=== PATIENT | female | born 1945 | race Caucasian/White ===

== ENCOUNTER → 2018-09-25 | Outpatient (CLI) | payer MEDICARE ==
[~2018-09-25] MED LIST: CHOL5000 PO; LIDOCAINE 1%, 20ML ONE; LIDOCAINE 1%-EPI 1:100K, 20ML ONE; MAGN500C9 PO; MULT1TAB60 PO; SODIUM BICARBONATE 4.0%, 5ML ONE
== END | disposition home or self-care (01) ==
LOC: CFH 08:27
PROVIDERS: ATTEND Surgery
DX: C50.912 Malignant neoplasm of unspecified site of left female breast (principal); I12.9 Hypertensive chronic kidney disease with stage 1 through stage 4 chronic kidney disease, or unspecified chronic kidney disease; N18.3 Chronic kidney disease, stage 3 (moderate); E78.2 Mixed hyperlipidemia; Z87.39 Personal history of other diseases of the musculoskeletal system and connective tissue; Z98.890 Other specified postprocedural states; Z90.710 Acquired absence of both cervix and uterus; Z98.51 Tubal ligation status; Z88.1 Allergy status to other antibiotic agents; Z88.8 Allergy status to other drugs, medicaments and biological substances; Z91.018 Allergy to other foods; Z72.89 Other problems related to lifestyle
CPT/HCPCS: 19285; 77065; J3490

== ENCOUNTER 2018-10-01 07:50 | Day surgery (SDC) | payer MEDICARE ==
[2018-09-28 13:18] LABS: BASOPHILS # (AUTO) 0.03 x10^3/uL (0-0.1); BASOPHILS % (AUTO) 1 % (0-1); EOSINOPHILS # (AUTO) 0.18 x10^3/uL (0-0.4); EOSINOPHILS % (AUTO) 3 % (1-7); LYMPHOCYTES # (AUTO) 1.63 x10^3/uL (1-3.4); LYMPHOCYTES % (AUTO) 27 % (22-44); MD NO; MEAN CORPUSCULAR HEMOGLOBIN 30.9 pg (27.0-34.8); MEAN CORPUSCULAR HGB CONC 34.1 g/dL (32.4-35.8); MEAN CORPUSCULAR VOLUME 90.8 fL (80-100); MEAN PLATELET VOLUME 7.7 fL (7.4-10.4); MONOCYTES # (AUTO) 0.29 x10^3/uL (0.2-0.8); MONOCYTES % (AUTO) 5 % (2-9); NEUTROPHILS # (AUTO) 3.84 x10^3/uL (1.8-6.8); NEUTROPHILS % (AUTO) 64 % (42-75); PLATELET COUNT 297 x10^3/uL (130-400); RED BLOOD COUNT 4.92 x10^6/uL (3.82-5.3); RED CELL DISTRIBUTION WIDTH 13.5 % (9.6-15.2)
[2018-09-28 13:25] LABS: INTERNATIONAL NORMALIZED RATIO 0.97 (0.93-1.1); PROTHROMBIN TIME 10.3 Seconds (9.6-11.5)
[2018-09-28 13:28] LABS: ALANINE AMINOTRANSFERASE 24 U/L (12-78); ALBUMIN 4.3 g/dL (3.4-5.0); ANION GAP 4 mmol/L (5-15); CALCIUM 9.3 mg/dL (8.5-10.1); CHLORIDE 109 mmol/L (98-107); CREATININE 0.99 mg/dL (0.55-1.02)
[2018-09-28 13:30] LABS: ALKALINE PHOSPHATASE 63 U/L (45-117); BILIRUBIN,TOTAL 0.4 mg/dL (0.2-1.0)
[~2018-10-01] VITALS: Ht 162.6 cm; Wt 78.8 kg
[~2018-10-01 07:50] MED LIST changes: +BUPIVACAINE/PF-EPI 0.5% 1:200K ONE; -LIDOCAINE 1%, 20ML ONE; -LIDOCAINE 1%-EPI 1:100K, 20ML ONE; -SODIUM BICARBONATE 4.0%, 5ML ONE
[2018-10-01 08:52] VITALS: BP 146/89
[2018-10-01] MEDS ORDERED: LACTATED RINGERS 1,000 ML IV SCH (08:56)
[2018-10-01] MEDS ORDERED: ACETAMINOPHEN 500 MG TABLET PO ONE (09:00)
[2018-10-01] MEDS ORDERED: GABAPENTIN 300 MG CAPSULE PO ONE (09:00)
[2018-10-01] MEDS ORDERED: ONDANSETRON ODT 8 MG PO ONE (09:00)
[2018-10-01] MEDS ORDERED: FENTANYL PF 250 MCG/5ML ONE (09:51)
[2018-10-01] MEDS ORDERED: MIDAZOLAM 1 MG/ML, 2ML ONE (09:51)
[2018-10-01] MEDS ORDERED: ISOSULFAN BLUE 10 MG/ML, 5ML IV ONE (10:31)
[2018-10-01] MEDS ORDERED: OXYcodone 5 MG/5 ML ORAL.SOL UDC PO PRN (12:00)
[2018-10-01] MEDS ORDERED: ONDANSETRON 2MG/ML, 2ML IV PRN (12:00)
[2018-10-01] MEDS ORDERED: MEPERIDINE/PF 25MG/0.5ML IVPush PRN (12:00)
[2018-10-01] MEDS ORDERED: METOPROLOL 1 MG/ML, 5ML IV PRN (12:00)
[2018-10-01] MEDS ORDERED: SCOPOLAMINE PATCH, 1.5MG PATCH.TD72 TD PRN (12:00)
[2018-10-01] MEDS ORDERED: HYDROmorphone 2 MG/ML, 1ML IVPush PRN (12:00)
[2018-10-01] MEDS ORDERED: MIDAZOLAM 1 MG/ML, 2ML IV PRN (12:00)
[2018-10-01] MEDS ORDERED: FENTANYL PF 100 MCG/2ML IV PRN (12:00)
[2018-10-01] MEDS ORDERED: ALBUTEROL/IPRATROPIUM 2.5MG/0.5MG, 3 ML NPPB PRN (12:00)
[2018-10-01] MEDS ORDERED: PROMETHAZINE 25 MG/ML, 1ML IV PRN (12:00)
[2018-10-01] MEDS ORDERED: hydrALAzine 20 MG/ML, 1ML IV PRN (12:00)
[2018-10-01] MEDS ORDERED: PROPOFOL 10 MG/ML, 20ML ONE (12:08)
[2018-10-01] MEDS ORDERED: CEFAZOLIN 1,000 MG ONE (12:08)
[2018-10-01] MEDS ORDERED: DEXAMETHASONE 4 MG/ML, 1ML ONE (12:08)
[2018-10-01] MEDS ORDERED: KETOROLAC 30 MG/1 ML IV PRN (13:00)
[2018-10-01] MEDS ORDERED: ROCURONIUM 10MG/ML,5ML ONE (14:43)
[2018-10-01] MEDS ORDERED: PHENYLEPHRINE 10 MG/ML ONE (14:43)
[2018-10-01] MEDS ORDERED: SUCCINYLCHOLINE 20 MG/ML, 10ML ONE (14:43)
== END 2018-10-01 15:30 | disposition home or self-care (01) ==
LOC: OUT 07:50 → EDSTATUS 10:30 → OUT 15:30
PROVIDERS: ATTEND Surgery
DX: C50.912 Malignant neoplasm of unspecified site of left female breast (principal); R59.1 Generalized enlarged lymph nodes; I12.9 Hypertensive chronic kidney disease with stage 1 through stage 4 chronic kidney disease, or unspecified chronic kidney disease; N18.3 Chronic kidney disease, stage 3 (moderate); E78.2 Mixed hyperlipidemia; Z79.01 Long term (current) use of anticoagulants; Z87.39 Personal history of other diseases of the musculoskeletal system and connective tissue; Z98.890 Other specified postprocedural states; Z98.49 Cataract extraction status, unspecified eye; Z90.710 Acquired absence of both cervix and uterus; Z98.51 Tubal ligation status; Z88.1 Allergy status to other antibiotic agents; Z88.8 Allergy status to other drugs, medicaments and biological substances; Z72.89 Other problems related to lifestyle
CPT/HCPCS: 19301; 36415; 38525; 38792; 76098; 80053; 85025; 85610; 88305; 88307; 93005; A9541; C9898; J0330; J0690; J1100; J2250; J2370; J2704; J3010; J7120; Q0162; 88341; 88342

== ENCOUNTER → 2018-10-30 | Outpatient (CLI) | payer MEDICARE ==
[~2018-10-30] MED LIST changes: -BUPIVACAINE/PF-EPI 0.5% 1:200K ONE
== END | disposition home or self-care (01) ==
LOC: ROC 07:16
PROVIDERS: ATTEND Radiology Radiation Oncology
DX: C50.412 Malignant neoplasm of upper-outer quadrant of left female breast (principal); E78.00 Pure hypercholesterolemia, unspecified; I10 Essential (primary) hypertension; M81.0 Age-related osteoporosis without current pathological fracture; E55.9 Vitamin D deficiency, unspecified; Z90.710 Acquired absence of both cervix and uterus
CPT/HCPCS: 99214; G0463

== ENCOUNTER 2019-01-11 07:58 | Outpatient (CLI) | payer MEDICARE | END 2019-01-11 23:59 | disposition home or self-care (01) | LOC: ROC 07:58 | PROVIDERS: ATTEND Radiology Radiation Oncology | DX: C50.412 Malignant neoplasm of upper-outer quadrant of left female breast (principal) | CPT/HCPCS: 99212; G0463 ==

== ENCOUNTER 2019-11-22 11:53 | Emergency (ER) | payer MEDICARE ==
[~2019-11-22] VITALS: Ht 162.6 cm; Wt 88.7 kg
--- NOTE | 2019-11-22 11:55 | NUR ---
CODE NEURO INITIATED AT 1140. KAMALJIT ARRIVED WITH PT AT 1152. NEUROLOGIST PAGED AT 1155.
[2019-11-22 12:11] LABS: BASOPHILS # (AUTO) 0.05 x10^3/uL (0-0.1); BASOPHILS % (AUTO) 1 % (0-1); EOSINOPHILS # (AUTO) 0.19 x10^3/uL (0-0.4); EOSINOPHILS % (AUTO) 3 % (1-7); LYMPHOCYTES # (AUTO) 1.79 x10^3/uL (1-3.4); LYMPHOCYTES % (AUTO) 30 % (22-44); MD NO; MEAN CORPUSCULAR HEMOGLOBIN 30.4 pg (27.0-34.8); MEAN CORPUSCULAR HGB CONC 33.4 g/dL (32.4-35.8); MEAN CORPUSCULAR VOLUME 91.1 fL (80-100); MEAN PLATELET VOLUME 8.1 fL (7.4-10.4); MONOCYTES # (AUTO) 0.34 x10^3/uL (0.2-0.8); MONOCYTES % (AUTO) 6 % (2-9); NEUTROPHILS % (AUTO) 60 % (42-75); PLATELET COUNT 284 x10^3/uL (130-400); RED BLOOD COUNT 5.17 x10^6/uL (3.82-5.3); RED CELL DISTRIBUTION WIDTH 12.9 % (9.6-15.2)
[2019-11-22] MEDS ORDERED: DIPHENHYDRAMINE 50 MG/ML, 1ML IV STA (12:14)
[2019-11-22] MEDS ORDERED: PROCHLORPERAZINE 5 MG/ML, 2ML IM STA (12:14)
[2019-11-22 12:20] LABS: INTERNATIONAL NORMALIZED RATIO 0.91 (0.93-1.1); PROTHROMBIN TIME 9.6 Seconds (9.6-11.5)
--- NOTE | 2019-11-22 12:43 | NUR ---
LATE ENTRY FOR PT ARRIVAL. PT BIB BY EMS. 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 PT PRESENTS NOW WITH NO NEURO DEFICITS. PT ASSESSED BY DR. BONILLA AND TAKEN ON EMS GURNEY TO CT AT 1155. CT WAS COMPLETED AND PT RTD TO ED AT 1110. DR PLUMMER ASSESSED PT VIA VIRTUAL COMPUTER. NO NEW NEURO FINDINGS NOTED. PT VSS ALTHOUGH BP IS ELEVATED. PT HAS HX OF HTN BUT STATES SHE HAS BEEN OFF OF ANY BP MEDS SINCE LOSING WEIGHT. PT TO MRI WITH TECH TRANSPORT. CT RESULTS AND DR PLUMMER ASSESSMENT REVIEWED WITH DR. BONILLA. PT CLEARED TO MOVE FROM TRAUMA ROOM TO ED 34.
--- NOTE | 2019-11-22 12:51 | NUR ---
RECEIVED REPORT FROM NIKKI ALVAREZ IN MRI AT THIS TIME.
--- NOTE | 2019-11-22 12:53 | NUR ---
PT RETURNED FROM MRI, UPRIGHT ON GURNEY AWAKE & MOSTLY COMFORTABLE, C/O MILD VILCHIS BUT TOLERABLE, RESPONDS APPROP TO STAFF, NAD, COMFORT MEASURES PROVIDED, CALL LIGHT WITHIN REACH.
[2019-11-22] MEDS ORDERED: ANAS1TAB49 PO (12:54)
--- NOTE | 2019-11-22 12:55 | NUR ---
MRI NOTIFIED THAT PT TO RTN TO ROOM 34 WHEN MRI COMPLETED. SBAR RPT TO [place] [facility]
--- NOTE | 2019-11-22 13:18 | NUR ---
REPORT RECIEVED FROM [facility]ER
[2019-11-22] MEDS ORDERED: DIPHENHYDRAMINE 50 MG/ML, 1ML ONE (13:38)
[2019-11-22] MEDS ORDERED: PROCHLORPERAZINE 5 MG/ML, 2ML ONE (13:38)
[2019-11-22 13:52] VITALS: BP 176/100
[2019-11-22] MEDS ORDERED: OMNIPAQUE 350 MG/ML, 100ML BOTTLE ONE (16:40)
== END 2019-11-22 13:55 | disposition home or self-care (01) ==
LOC: ED 13:44
DX: G43.109 Migraine with aura, not intractable, without status migrainosus (principal)
CPT/HCPCS: 36415; 70450; 70496; 70498; 70551; 80047; 85025; 85610; 85730; 93005; 96372; 96374; 99285; J0780; J1200; Q9967